=== PATIENT | male | born 1970 | race Caucasian/White ===

== ENCOUNTER → 2024-04-24 06:23 | Outpatient (REF) | payer MEDICARE, OTHER, SELFPAY ==
[2024-04-24 10:19] LABS: % Basophils 0.9 % (0-2); % Eosinophils 6.1 % (0-6); % Immature Granulocytes 1.4 % (0-0.5); % Lymphocytes 21.5 % (20.5-51.1); % Neutrophils 60.1 % (42.2-75.2); Absolute Basophils 0.1 10^3/uL (0-0.2); Absolute Eosinophils 0.5 10^3/uL (0-0.7); Absolute Immature Granulocytes 0.1 10^3/uL (0-0.05); Absolute Lymphocytes 1.6 10^3/uL (1.2-3.4); Absolute Monocytes 0.7 10^3/uL (0.1-0.6); Absolute Neutrophils 4.4 10^3/uL (1.4-6.5); Hematocrit 46.1 % (39.0-52.0); Hemoglobin 15.7 g/dL (13.0-18.0); Mean Corp Hgb Conc. 34.1 g/dL (33.0-37.0); Mean Corpuscular Hgb 31.1 pg (27.0-31.0); Mean Corpuscular Volume 91.3 fL (80.0-94.0); Nucleated Red Blood Cells % 0 % (-); Platelet Count 224 10^3/uL (130-400); Red Blood Cell Count 5.05 10^6/uL (4.70-6.10); Red Cell Dist. Width 11.8 % (11.5-14.5); White Blood Cell Count 7.4 10^3/uL (4.8-10.8)
[2024-04-24 10:24] LABS: ALT (SGPT) 27 U/L (0-50); AST (SGOT) 27 U/L (17-59); Albumin 4.2 g/dl (3.5-5.0); Alkaline Phosphatase 61 U/L (38-126); Blood Urea Nitrogen 27 mg/dl (9-20); Calcium 9.6 mg/dl (8.4-10.2); Carbon Dioxide 29 mmol/L (22-30); Chloride 104 mmol/L (98-107); Glucose 96 mg/dl (70-99); HDL Cholesterol 49 mg/dl; LDL Cholesterol, Calculated 139 mg/dl; Potassium 4.3 mmol/L (3.5-5.1); Sodium 140 mmol/L (135-145); Total Bilirubin 0.7 mg/dl (0.2-1.3); Total Cholesterol 217 mg/dl (50-199); Total Protein 7.4 g/dl (6.3-8.2); Triglyceride 146 mg/dl (10-149); Very Low Density Lipoprotein 29 mg/dl (0-30); eGFR > 60.00
[2024-04-24 10:53] LABS: PSA, Total - Screen 1.04 ng/ml (0.0-4.0); TSH Reflex To Free T4 1.83 uIU/ml (0.47-4.68)
== END ==
LOC: HWLAB 06:23
PROVIDERS: ATTENDING PHYSICIAN Nurse Practitioner Family
DX: Z12.5 Encounter for screening for malignant neoplasm of prostate (principal); Z79.899 Other long term (current) drug therapy; G35 Multiple sclerosis
CPT/HCPCS: 36415; 80053; 80061; 84443; 85025; G0103

== ENCOUNTER → 2025-04-23 06:04 | Outpatient (REF) | payer MEDICARE, OTHER, SELFPAY ==
[2025-04-23 09:38] LABS: % Basophils 0.8 % (0-2); % Eosinophils 5.4 % (0-6); % Immature Granulocytes 0.2 % (0-0.5); % Lymphocytes 18.8 % (20.5-51.1); % Monocytes 9.8 % (1.7-9.3); Absolute Basophils 0.1 10^3/uL (0-0.2); Absolute Eosinophils 0.5 10^3/uL (0-0.7); Absolute Lymphocytes 1.6 10^3/uL (1.2-3.4); Absolute Monocytes 0.8 10^3/uL (0.1-0.6); Absolute Neutrophils 5.4 10^3/uL (1.4-6.5); Hematocrit 44.3 % (39.0-52.0); Hemoglobin 15.5 g/dL (13.0-18.0); Mean Corpuscular Hgb 31.3 pg (27.0-31.0); Mean Corpuscular Volume 89.5 fL (80.0-94.0); Mean Platelet Volume 10.2 fL (7.4-10.4); Nucleated Red Blood Cells % 0 % (-); Platelet Count 226 10^3/uL (130-400); Red Blood Cell Count 4.95 10^6/uL (4.70-6.10); Red Cell Dist. Width 11.7 % (11.5-14.5); White Blood Cell Count 8.3 10^3/uL (4.8-10.8)
[2025-04-23 09:57] LABS: ALT (SGPT) 30 U/L (0-50); AST (SGOT) 25 U/L (17-59); Albumin 4.2 g/dl (3.5-5.0); Alkaline Phosphatase 57 U/L (38-126); Blood Urea Nitrogen 23 mg/dl (9-20); Calcium 9.2 mg/dl (8.4-10.2); Carbon Dioxide 26 mmol/L (22-30); Chloride 109 mmol/L (98-107); Glucose 104 mg/dl (70-99); HDL Cholesterol 47 mg/dl; LDL Cholesterol, Calculated 124 mg/dl; Potassium 4.4 mmol/L (3.5-5.1); Sodium 144 mmol/L (135-145); Total Bilirubin 0.5 mg/dl (0.2-1.3); Total Cholesterol 198 mg/dl (50-199); Total Protein 7.4 g/dl (6.3-8.2); Triglyceride 137 mg/dl (10-149); Very Low Density Lipoprotein 27 mg/dl (0-30); eGFR > 60.00
[2025-04-23 10:25] LABS: TSH Reflex To Free T4 1.72 uIU/ml (0.47-4.68)
== END ==
LOC: HWLAB 06:04
PROVIDERS: ATTENDING PHYSICIAN Internal Medicine
DX: Z12.5 Encounter for screening for malignant neoplasm of prostate (principal); E78.00 Pure hypercholesterolemia, unspecified
CPT/HCPCS: 36415; 80053; 80061; 84443; 85025; G0103

== ENCOUNTER 2025-11-22 19:03 | Emergency (ER) | payer MEDICARE, OTHER, SELFPAY ==
[2025-11-22 19:07] VITALS: BP 134/86
--- NOTE | 2025-11-22 22:14 | ED.GENMED ---
History of Present Illness
General
Chief Complaint: Fall
Source: patient and family (Sister)
Exam Limitations: none
Time Seen by Provider: 11/22/25 21:54
Nursing documentation reviewed up to this point in time: agreed with
History of Present Illness
History of Present Illness:
Patient to the emergency department after trip and fall at home. According to his sister patient was walking on the sidewalk and lost his balance on the edge of the sidewalk. He fell forward and hit his right forehead on the pavement. No LOC. He
sustained a small laceration to his right eyebrow. He also has an abrasion to his right anterior knee. Brought to the emergency department by sister for evaluation.
Past History
Past History
ED Past Medical History: Psychiatric (Depression), Other ([place]-follows with neurologist, Dr. George at [facility]. Maintained on Ocrevus injections every 6 months) and Other (Left shoulder impingement syndrome)
Social History
Tobacco: Non-smoker
Alcohol: None
Drug: None
Personal: Single
Living: with family (Resides with sister)
Employment: Disabled
Family History
Family History: Other (Noncontributory)
Review of Systems
Review of Systems
Allergies reviewed?: Yes
All Other Systems: ROS reviewed and negative except as documented in HPI and ROS
Constitutional: Reports no symptoms
EENT: Reports no symptoms
Respiratory: Reports no symptoms
Cardiac: Reports no symptoms
ABD/GI: Reports no symptoms
: Reports no symptoms
Musculoskeletal: Reports no symptoms
Skin: Reports other (Laceration to right eyebrow, abrasion to right anterior knee)
Neurological: Reports no symptoms
Psychiatric: Reports no symptoms
Phy Exam
General Physical Exam
General Presentation: well appearing and no apparent distress
General age: appears stated age
General Skin: warm and dry
General Habitus: normal
General Mental: alert
Eye Exam
Eye Exam: PERRL, EOMI and conjunctiva normal
Neurological Exam
Neurological Exam: alert, oriented x3, no motor deficits, no sensory deficits and speech normal
Samra Coma Scale
Eye Opening: Spontaneous
Verbal Response: Oriented
Motor Response: Obeys Commands
GCS Total Score: 15
Musculoskeletal Exam
Musculoskeletal Exam: full ROM, neuro vasc intact and other (Full range of motion to upper and lower extremities. Full nonpainful range of motion to head neck and back. He is able to ambulate with minimal assistance in ED ([facility]))
Skin Exam
Skin Exam: normal color, warm/dry and no rash
Psychiatric Exam
Psychiatric Exam: normal mood/affect
Course
Orders/Labs/Results
Orders:
Orders
11/22/25 19:15
CT Head W/o Iv Contrast Urgent
Comment:
Reason For Exam: fell hit head
Vital Signs
Initial and Last Documented VS:
Initial Vital Signs
Temp Pulse Resp BP Pulse Ox
97.7 F 64 20 134/86 100
11/22/25 19:07 11/22/25 19:07 11/22/25 19:07 11/22/25 19:07 11/22/25 19:07
Last Documented Vital Signs
Temp Pulse Resp BP Pulse Ox
97.7 F 64 20 134/86 100
11/22/25 19:07 11/22/25 19:07 11/22/25 19:07 11/22/25 19:07 11/22/25 19:07
Procedures
Laceration Closure
Right Forehead:
Status of Wound: clean
Description of Wound Edges: sharp
Preparation: cleaned with saline
Revision/Debridement: routine- no revision
Wound exploration: explored to base- no FB
Type of Closure: Dermabond-skin glue
*Radiology
Radiology exam reviewed: radiology read reviewed
*Pulse Oximetry
SaO2: 100
Oxygen Mode of Delivery: Room air
Patient hypoxic: no
*Critical Care Note
Total Time (30-74mins, 75-104mins- exclusive of procedures): Not Applicable
Update Note
Update Note:
Patient to emergency department for evaluation after trip and fall on the sidewalk. He hit the right side of his forehead on the pavement. He sustained a small laceration to his right forehead. Wound was cleansed with normal saline and closed
with glue bedside. He has an abrasion to his right anterior knee. He has full nonpainful range of motion to his knee able to ambulate. Wound was cleansed with normal saline antibiotic ointment applied by RN. CT of head completed, no acute
findings. Patient will be discharged home, follow-up with family doctor. Given instructions on signs and symptoms to return to the emergency department and they are agreeable to plan.
ED Attending Note
-
Portions of this chart may have been created with voice recognition software.� Occasional wrong word or��sound alike� substitutions may have occurred due to the inherent limitations of voice recognition software.
Discharge Plan
Departure
Patient Disposition: Home (Routine Discharge)
Date of Disposition: 11/22/25
Time of Disposition: 22:11
Patient with high blood pressure during this ER visit?: No
Condition: Good
Covid-19: Not Applicable
Discharge Problem:
Head injury, Forehead laceration, Abrasion of knee, right
Instructions: Laceration Repair With Glue (DC), Wound Care (DC), Head Injury in Adults (DC), Contusion (DC), Preventing falls in adults, Skin Abrasions (DC)
Prescriptions:
No Action
meclizine 25 mg tablet
25 mg PO QID PRN (Reason: dizziness, nausea) Qty: 20 0RF
Activity Restrictions/Additional Instructions:
Keep forehead laceration dry for 24 hours. Leave the tape strips fall off in the room. Follow-up with your family doctor as needed.
Interventions
Interventions:
*General Assessment Last Done: 11/22/25 19:07
*Neglect/Abuse Screening Last Done: 11/22/25 19:07
*Risk Screen - Suicide (C-SSRS) Last Done: 11/22/25 19:07
ED-Musculoskeletal Assessment Last Done: 11/22/25 22:13
ED- Neurological Assessment Last Done: 11/22/25 22:13
ED-Skin Assessment Last Done: 11/22/25 22:13
Discharge Date and Time
Print Language: LITHUANIAN
Skin Exam
Laceration
Right Forehead:
Length in cm: 1
Orientation: vertical
Type of Laceration: simple
Any active bleeding?: no active bleeding
Distal skin color and temperature: normal-warm & good color
Normal distal neurovascular exam: Yes
Range of motion: full
== END 2025-11-22 22:42 | disposition home or self-care (01) ==
LOC: EMR 19:03
PROVIDERS: EMERGENCY PHYSICIAN Emergency Medicine; FAMILY PHYSICIAN Internal Medicine
DX: S01.81XA Laceration without foreign body of other part of head, initial encounter (principal); S09.90XA Unspecified injury of head, initial encounter; S80.211A Abrasion, right knee, initial encounter; W01.0XXA Fall on same level from slipping, tripping and stumbling without subsequent striking against object, initial encounter; Y92.009 Unspecified place in unspecified non-institutional (private) residence as the place of occurrence of the external cause; G35.D Multiple sclerosis, unspecified; F32.A Depression, unspecified; F31.9 Bipolar disorder, unspecified; F20.9 Schizophrenia, unspecified; Z88.0 Allergy status to penicillin
CPT/HCPCS: 99284; 12011; 70450